=== PATIENT | female | born 1950 | race Caucasian/White ===

== ENCOUNTER 2016-06-14 13:32 | Observation (INO) | payer MEDICARE, MEDICAID ==
[2016-06-14] VITALS (10 sets, daily range): BP systolic 150–192; BP diastolic 71–90; PULSE 64–75; RESP 17–20; TEMP 97.6–98.3; O2SAT 96–99
[~2016-06-14] VITALS: Ht 157.5 cm; Wt 83.7 kg
[~2016-06-14 13:32] MED LIST: Aspirin Ec PO; COZA50TA PO; HYDR12.56 PO; LORT7.5T3 PO; MIRTA15 PO; ROSU40 PO
[2016-06-14] MEDS ORDERED: HYDROCORTISONE SOD SUCCINATE 250 MG VIAL IV ONE (13:45)
[2016-06-14] MEDS ORDERED: diphenhydrAMINE HCL 50 MG/ML VIAL IVP ONE (13:45)
--- NOTE | 2016-06-14 13:53 | RADRPT ---
EXAM DATE/TIME: 06/14/2016 13:44 [facility] COMPARISON: MRI BRAIN W & W/O CONTRAST, April 14, 2016, 8:55. CTA BRAIN W 3D RECON, April 12, 2016, 16:[address] BRAIN W/O CONTRAST, April 13, 2016, 21:23. INDICATIONS : Aphasia since noon today. Previous stroke. RADIATION DOSE: 42.52 CTDIvol (mGy) This report was called to Dr. Angulo at 1350 MEDICAL HISTORY : Hypertension. Carcinoma, bladder. Cerebrovascular disease. SURGICAL HISTORY : None. ENCOUNTER: Initial ACUITY: 1 day PAIN SCALE: Non-responsive LOCATION: cranial TECHNIQUE: Multiple contiguous axial images were obtained of the head. Using automated exposure control and adj ustment of the mA and/or kV according to patient size, radiation dose was kept as low as reasonably a chievable to obtain optimal diagnostic quality images. FINDINGS: CEREBRUM: The ventricles are normal for age. No evidence of midline shift, mass lesion, hemorrhage or acute in farction. No extra-axial fluid collections are seen. POSTERIOR FOSSA: The cerebellum and brainstem are intact. The 4th ventricle is midline. The cerebellopontine angle i s unremarkable. EXTRACRANIAL: The visualized portion of the orbits is intact. SKULL: The calvaria is intact. No evidence of skull fracture. CONCLUSION: Negative for acute process. Gama Hooks MD FACR on June 14, 2016 at 13:49 Board Certified Radiologist. This report was verified electronically.
[2016-06-14 13:55] LABS: AUTOMATED NEUTROPHIL # 8.6 TH/MM3 (1.8-7.7); BASOPHIL % 0.3 % (0.0-2.0); HEMATOCRIT 30.3 % (35.0-46.0); HEMO FLAGS DIFF FINAL; I-STAT POTASSIUM 4.6 MMOL/L (3.5-4.9); I-STAT SODIUM 143 MMOL/L (138-146); LYMPH % 3.9 % (9.0-44.0); LYMPHOCYTE # 0.3 TH/MM3 (1.0-4.8); MEAN CELL VOLUME 87.5 FL (80.0-100.0); MEAN CORPUSCULAR HGB CONC 34.3 % (32.0-36.0); MONO % 0.4 % (0.0-8.0); NEUT % 95.4 % (16.0-70.0); PLATELET COUNT 168 TH/MM3 (150-450); RED BLOOD COUNT 3.46 MIL/MM3 (4.00-5.30); RED CELL DISTRIBUTION WIDTH 17.1 % (11.6-17.2)
[2016-06-14 14:04] LABS: APTT (PATIENT) 32.7 SEC (24.3-30.1); INTERNATIONAL NORMALIZED RATIO 0.9 RATIO; PROTHROMBIN TIME - PATIENT 10.4 SEC (9.8-11.6)
[2016-06-14 14:14] LABS: CREATINE KINASE 55 U/L (26-192)
--- NOTE | 2016-06-14 14:15 | PD ---
HPI Chief Complaint: Neuro Symptoms/ Deficits Time Seen by Provider: 13:37 Travel History International Travel<30 days: No Contact w/Intl Traveler<30days: No Traveled to known affect area: No History of Present Illness HPI Patient is a 66-year-old female with history of endometrial cancer who presents to emergency room after she developed complete aphasia around 1pm today after her chemo infusion. Patient was at the oncology center today receiving chemotherapy, reports that she suddenly developed complete aphasia. Patient was brought to the emergency room, a stroke alert was called patient. Blood sugar was 301, and patient was brought to CT of her head. Of note, patient had similar symptoms occur on April 12, 2016, at that time, patient presented with similar complaints after she had her chemotherapy treatment. Patient was given TPA and patient had complete resolution of her symptoms 6 minutes after she was given TPA. Patient had a full workup including an MRI of her head at that time. 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 As per patient's daughter, patient did follow up with neurologist yesterday, reports that pt most likely had a TIA. PFSH Past Medical History Hx Anticoagulant Therapy: Yes (ASA) Cancer: Yes (BLADDER CANCER) Cardiovascular Problems: Yes (HBP) Chemotherapy: Yes Diabetes: No Genitourinary: Yes (BLADDER CA [place] ) Hepatitis: No Hiatal Hernia: No Neurologic: No Respiratory: No Thyroid Disease: No ?: Not Past Surgical History Abdominal Surgery: No Cardiac Surgery: No Ear Surgery: No Endocrine Surgery: No Eye Surgery: No Genitourinary Surgery: Yes (BLADDER CANCER 8 YRS AGO) Gynecologic Surgery: No Oral Surgery: No Thoracic Surgery: No Family History Family History: Negative Social History Alcohol Use: No Tobacco Use: No Substance Use: No Allergies-Medications (Allergen,Severity, Reaction): Coded Allergies: Naprosyn (Verified Allergy, Intermediate, ITCHING, 06/14/16) Reported Meds & Prescriptions Reported Meds & Active Scripts Active Reported Losartan (Losartan Potassium) 100 Mg Tab 100 Mg PO DAILY Percocet (Oxycodone-Acetaminophen) 7.5-325 mg Tab 1 Tab PO Q6H PRN Flonase Allergy Relief Nasal [place] (Fluticasone Nasal [place]) 50 Mcg/Act [place] 2 [place] EACH NARE DAILY PRN Flexeril (Cyclobenzaprine HCl) 10 Mg Tab 10 Mg PO TID PRN Zyrtec Allergy (Cetirizine HCl) 10 Mg Tab 10 Mg PO DAILY PRN Xanax (Alprazolam) 0.25 Mg Tab 0.25 Mg PO BID Viibryd (Vilazodone) 40 Mg Tab 40 Mg PO DAILY Crestor (Rosuvastatin Calcium) 40 Mg Tab 40 Mg PO HS Ecotrin (Aspirin) 325 Mg Tab 325 Mg PO DAILY Review of Systems ROS Limitations: Altered Mental Status Physical Exam Narrative GENERAL: Patient in distress, patient completely aphasic SKIN: Warm and dry. HEAD: Atraumatic. Normocephalic. EYES: Pupils 3 equal and round and reactive. No scleral icterus. No injection or drainage. ENT: No nasal bleeding or discharge. Mucous membranes pink and moist. NECK: Trachea midline. No JVD. CARDIOVASCULAR: Regular rate and rhythm. No murmur appreciated. RESPIRATORY: No accessory muscle use. Clear to auscultation. Breath sounds equal bilaterally. GASTROINTESTINAL: Abdomen soft, non-tender, nondistended. Hepatic and splenic margins not palpable. MUSCULOSKELETAL: No obvious deformities. No clubbing. No cyanosis. No edema. NEUROLOGICAL: Awake and alert. Patient is aphasic, patient moving all extremities and following commands. NIH Scale 5 Data Data Last Documented VS Vital Signs Date Time Temp Pulse Resp B/P Pulse Ox O2 Delivery O2 Flow Rate FiO2 06/14/16 14:03 75 18 155/73 99 Nasal Cannula 3 06/14/16 13:35 97.8 Orders Electrocardiogram (06/14/16 ) Prothrombin Time / Inr (Pt) (06/14/16 13:36) Act Partial Throm Time (Ptt) (06/14/16 13:36) Complete Blood Count With Diff (06/14/16 13:36) Creatine Kinase (Cpk) (06/14/16 13:36) Troponin I (06/14/16 13:36) Ua Includes Microscopic (06/14/16 13:36) Ct Brain W/O Iv Contrast(Rout) (06/14/16 ) Consult Neurology (06/14/16 ) Blood Glucose (06/14/16 13:36) Ecg Monitoring (06/14/16 13:36) Iv Access Insert/Monitor (06/14/16 13:36) NPO (06/14/16 13:36) Oximetry (06/14/16 13:36) Oxygen Administration (06/14/16 13:36) Hydrocortisone Inj (Solucortef Inj) (06/14/16 13:45) Diphenhydramine Inj (Benadryl Inj) (06/14/16 13:45) I-Stat Creatinine (06/14/16 13:45) I-Stat Profile (06/14/16 13:45) Mri Brain W/O Contrast (06/14/16 ) (Hub Use Only)Inp Phy Cons/Ref (06/14/16 ) Admit Order (Ed Use Only) (06/14/16 15:15) Labs Laboratory Tests Test 06/14/16 13:45 White Blood Count 9.0 TH/MM3 Red Blood Count 3.46 MIL/MM3 Hemoglobin 10.4 GM/DL Bedside Hemoglobin 9.5 G/DL Hematocrit 30.3 % Bedside Hematocrit 28.0 % Mean Corpuscular Volume 87.5 FL Mean Corpuscular Hemoglobin 30.0 PG Mean Corpuscular Hemoglobin 34.3 % Concent Red Cell Distribution Width 17.1 % Platelet Count 168 TH/MM3 Mean Platelet Volume 7.2 FL Neutrophils (%) (Auto) 95.4 % Lymphocytes (%) (Auto) 3.9 % Monocytes (%) (Auto) 0.4 % Eosinophils (%) (Auto) 0.0 % Basophils (%) (Auto) 0.3 % Neutrophils # (Auto) 8.6 TH/MM3 Lymphocytes # (Auto) 0.3 TH/MM3 Monocytes # (Auto) 0.0 TH/MM3 Eosinophils # (Auto) 0.0 TH/MM3 Basophils # (Auto) 0.0 TH/MM3 CBC Comment DIFF FINAL Differential Comment Prothrombin Time 10.4 SEC Prothromb Time International 0.9 RATIO Ratio Activated Partial 32.7 SEC Thromboplast Time Bedside Sodium 143 MMOL/L Bedside Potassium 4.6 MMOL/L Bedside Chloride 116 MMOL/L Bedside Blood Urea Nitrogen 32 MG/DL Bedside Creatinine 1.6 MG/DL Bedside Glucose 300 MG/DL Total Creatine Kinase 55 U/L Troponin I LESS THAN 0.02 NG/ML MDM Medical Screen Exam Complete: Yes Emergency Medical Condition: Yes Medical Record Reviewed: Yes Differential Diagnosis CVA versus TIA versus medication reaction Narrative Course Patient is a 66-year-old female who presents to emergency room for evaluation of possible stroke. He was getting chemotherapy for her endometrial cancer when she became aphasic all of a sudden. Onset of symptoms was around 1 PM today. Patient was brought to the emergency room, stroke alert was called overhead. I stat labs were ordered and obtained Creatinine 1.6 Sodium 143 Potassium 4.6 Chloride 116 BUN 32 Glucose 300 Hemoglobin 9.5 Hematocrit 28% Dr. Marshall with Neurology was called and notified of [facility] Oncology center did notify me that this may be a medication reaction from the chemotherapy. Recommends that I give a dose of Solu-Cortef as well as Benadryl to see if this is a medication reaction. Upon further evaluation of medical records, patient was seen for similar symptoms and was given tPA on April 12, 2016, patient had resolution of symptoms after infusions of infusion of TPA 6 minutes after medications were given. Patient is not a lytic candidate at this time given her recent stroke within the past [address] of the head was negative, case is reviewed with radiologist, recommends MRI of the brain at this time. Upon return to the ER for an MRI, patient now conversive and has complete resolution of her aphasia plan to obs for tia MRI reviewed Pt was seen by Dr Marshall and Dr Hunt who accepts pt to Service pt with Medication Reaction vs TIA Critical Care Narrative Aggregate critical care time was 60 minutes. Time to perform other separately billable procedures was not included in the critical care time. My time did not include minutes spent treating any other patients simultaneously or on activities that did not directly contribute to the patient's treatment. The services I provided to this patient were to treat and/or prevent clinically significant deterioration that could result in: , decompensation, deterioration I provided critical care services requiring my management, as noted below: Chart data review, documentation time, medication orders and management, vital sign assessments/reviewing monitor data, ordering and reviewing lab tests, ordering and interpreting/reviewing x-rays and diagnostic studies, care of the patient and discussion of the patient with the admitting physicians. Stroke Alert NIHSS NIH Stroke Scale Result: 5 NIHSS Time Completed: 14:35 Diagnosis Diagnosis: Primary Impression: TIA (transient ischemic attack) Qualified Code: G45.9 - Transient cerebral ischemia, unspecified type Additional Impression: Medication reaction Qualified Code: T88.7XXA - Medication reaction, initial encounter Admitting Physician Requests: Observation Kellie Angulo DO Jun 14, 2016 14:15
[2016-06-14] MEDS ORDERED: ROSU40 PO (14:26)
[2016-06-14] MEDS ORDERED: ALPR.25 PO (14:26)
[2016-06-14] MEDS ORDERED: ZYRT10TA PO (14:26)
[2016-06-14] MEDS ORDERED: ASPI-156 PO (14:26)
[2016-06-14] MEDS ORDERED: VIIB40TA PO (14:26)
[2016-06-14] MEDS ORDERED: CYCL1TAB29 PO (14:29)
[2016-06-14] MEDS ORDERED: LOSA100T PO (14:29)
[2016-06-14] MEDS ORDERED: PERC7.5T13 PO (14:29)
[2016-06-14] MEDS ORDERED: FLUT1SPR5 EACH NARE (14:29)
--- NOTE | 2016-06-14 14:55 | RADRPT ---
EXAM DATE/TIME: 06/14/2016 14:14 [facility] COMPARISON: No previous studies available for comparison. INDICATIONS : Aphasia. Right side weakness. MEDICAL HISTORY : Carcinoma, bladder. Hypertension. SURGICAL HISTORY : Hysterectomy. ENCOUNTER: Initial ACUITY: 1 day PAIN SCORE: 0/10 LOCATION: cranial TECHNIQUE: Multiplanar, multisequence MRI of the brain was performed without contrast. FINDINGS: CEREBRUM: The ventricles are normal for age. No evidence of midline shift, mass lesion, hemorrhage or acute in farction. No extraaxial fluid collections are seen. The pituitary gland and suprasellar cistern are normal in configuration. WHITE MATTER: Scattered foci of increased T2 signal identified within the periventricular white matter and within t he white matter involving the centrum semiovale and burrell radiata. These are not associated with res tricted diffusion. No evidence of hemorrhage. POSTERIOR FOSSA: The cerebellum and brainstem are intact. The 4th ventricle is midline. The cerebellopontine angle is unremarkable. The cerebellar tonsils are normal in position. DIFFUSION IMAGING: No focal areas of restricted diffusion are seen. No evidence of acute infarction. EXTRACRANIAL: The visualized portions of the orbits and paranasal sinuses are unremarkable. CONCLUSION: Nonspecific foci of increased T2 signal within the white matter as noted above. Given the patient's a ge this may reflect sequelae of chronic small vessel ischemic change.. Nury Verdugo MD on June 14, 2016 at 14:52 Board Certified Radiologist. This report was verified electronically.
[2016-06-14] MEDS ORDERED: FLUTICASONE PROPIONATE 50 MCG/ACT 16 GM NASAL SPRAY EACH NARE PRN (15:30)
[2016-06-14] MEDS ORDERED: CETIRIZINE HCL 10 MG TAB PO PRN (15:30)
[2016-06-14] MEDS ORDERED: CYCLOBENZAPRINE HCL 10 MG TAB PO PRN (15:30)
--- NOTE | 2016-06-14 15:32 | HHI.HP ---
[facility] George Joseph M.D. Admission Diagnosis TIA vs Medication Reaction Diagnoses: (1) Medication reaction Diagnosis: Principal Chief Complaint: stroke alert Travel History International Travel<30 Days: No Contact w/Intl Traveler <30 Da: No Traveled to Known Affected Are: No History of Present Illness patient is a 66 y/o female with history of cervical cancer and hypertension who was brought to ER with aphasia. she was receiving her chemo earlier today when she started to have aphasia. she doesn't remember if she had any focal weakness. she received a dose of benadryl and hydrocortisone after which the symptom resolved. her daughter says at the time she was responding but was not able to talk. at the time of my evaluation she was resting comfortably with no distress. she was awake, alert and fully oriented.of note she had the same reaction to her chemo two months ago.she had a full neurological work-up and was discharged with aspirin. Review of Systems Constitutional: DENIES: Fever, Weight loss, Chills, Night Sweats Eyes: DENIES: Blurred vision, Diplopia, Vision loss, Double Vision Ears, nose, mouth, throat: DENIES: Tinnitus, Vertigo, Throat pain, Epistaxis Respiratory: DENIES: Apneas, Cough, Snoring, Wheezing, Hemoptysis, Sputum production, Shortness of breath Cardiovascular: DENIES: Chest pain, Palpitations, Syncope, Dyspnea on Exertion , PND, Lower Extremity Edema, Orthopnea, Claudication Gastrointestinal: DENIES: Abdominal pain, Black stools, Bloody stools, Constipation, Diarrhea, Nausea, Vomiting, Difficulty Swallowing, Anorexia Genitourinary: DENIES: Urinary frequency, Urgency, Hematuria, Dysuria Musculoskeletal: DENIES: Joint pain, Muscle aches, Stiffness, Joint Swelling Integumentary: DENIES: Rash Neurologic: COMPLAINS OF: Speech Problems, DENIES: Abnormal gait, Headache, Localized weakness, Paresthesias, Seizures, Tremor, Poor Balance Psychiatric: DENIES: Anxiety, Confusion, Mood changes, Depression, Hallucinations, Agitation, Suicidal Ideation, Homicidal Ideation, Delusions Past Family Social History Past Medical History endometrial cancer hypertension Past Surgical History hysterectomy nephrostomy tube placement Reported Medications Losartan (Losartan Potassium) 100 Mg Tab 100 Mg PO DAILY Percocet (Oxycodone-Acetaminophen) 7.5-325 mg Tab 1 Tab PO Q6H PRN Flonase Allergy Relief Nasal [place] (Fluticasone Nasal [place]) 50 Mcg/Act [place] 2 [place] EACH NARE DAILY PRN Flexeril (Cyclobenzaprine HCl) 10 Mg Tab 10 Mg PO TID PRN Zyrtec Allergy (Cetirizine HCl) 10 Mg Tab 10 Mg PO DAILY PRN Xanax (Alprazolam) 0.25 Mg Tab 0.25 Mg PO BID Viibryd (Vilazodone) 40 Mg Tab 40 Mg PO DAILY Crestor (Rosuvastatin Calcium) 40 Mg Tab 40 Mg PO HS Ecotrin (Aspirin) 325 Mg Tab 325 Mg PO DAILY Allergies: Coded Allergies: Naprosyn (Verified Allergy, Intermediate, ITCHING, 06/14/16) Active Ordered Medications Current Medications Hydrocortisone Sodium Succinate (SoluCORTEF INJ) 250 mg ONCE ONCE IV Last administered on 06/14/16 14:45; Start 06/14/16 at 13:45; Stop 06/14/16 at 13:47 ; Status DC Diphenhydramine HCl (Benadryl Inj) 25 mg ONCE ONCE IVP Last administered on 14:01; Start 06/14/16 at 13:45; Stop 06/14/16 at 13:47; Status DC Family History cancer. Social History quit smoking years ago- doesn't drink. Physical Exam Vital Signs Vital Signs Date Time Temp Pulse Resp B/P Pulse Ox O2 Delivery O2 Flow Rate FiO2 06/14/16 15:00 64 17 163/71 99 Nasal Cannula 2 06/14/16 14:03 75 18 155/73 99 Nasal Cannula 3 06/14/16 13:52 18 98 Nasal Cannula 3 06/14/16 13:52 Nasal Cannula 2 06/14/16 13:35 97.8 70 18 186/80 98 Physical Exam GENERAL: This is a well-nourished, well-developed patient, in no apparent distress. SKIN: No rashes, ecchymoses or lesions. Cool and dry. HEAD: Atraumatic. Normocephalic. No temporal or scalp tenderness. EYES: Pupils equal round and reactive. Extraocular motions intact. No scleral icterus. No injection or drainage. ENT: Nose without bleeding, purulent drainage or septal hematoma. Throat without erythema, tonsillar hypertrophy or exudate. Uvula midline. Airway patent. NECK: Trachea midline. No JVD or lymphadenopathy. Supple, nontender, no meningeal signs. CARDIOVASCULAR: Regular rate and rhythm without murmurs, gallops, or rubs. RESPIRATORY: Clear to auscultation. Breath sounds equal bilaterally. No wheezes , rales, or rhonchi. GASTROINTESTINAL: Abdomen soft, non-tender, nondistended. No hepato-splenomegaly , or palpable masses. No guarding. MUSCULOSKELETAL: Extremities without clubbing, cyanosis, or edema. No joint tenderness, effusion, or edema noted. No calf tenderness. Negative Homans sign bilaterally. NEUROLOGICAL: Awake and alert. Cranial nerves II through XII intact. Motor and sensory grossly within normal limits. Five out of 5 muscle strength in all muscle groups. Normal speech. Laboratory Laboratory Tests Test 06/14/16 13:45 White Blood Count 9.0 Red Blood Count 3.46 Hemoglobin 10.4 Bedside Hemoglobin 9.5 Hematocrit 30.3 Bedside Hematocrit 28.0 Mean Corpuscular Volume 87.5 Mean Corpuscular Hemoglobin 30.0 Mean Corpuscular Hemoglobin 34.3 Concent Red Cell Distribution Width 17.1 Platelet Count 168 Mean Platelet Volume 7.2 Neutrophils (%) (Auto) 95.4 Lymphocytes (%) (Auto) 3.9 Monocytes (%) (Auto) 0.4 Eosinophils (%) (Auto) 0.0 Basophils (%) (Auto) 0.3 Neutrophils # (Auto) 8.6 Lymphocytes # (Auto) 0.3 Monocytes # (Auto) 0.0 Eosinophils # (Auto) 0.0 Basophils # (Auto) 0.0 CBC Comment DIFF FINAL Differential Comment Prothrombin Time 10.4 Prothromb Time International 0.9 Ratio Activated Partial 32.7 Thromboplast Time Bedside Sodium 143 Bedside Potassium 4.6 Bedside Chloride 116 Bedside Blood Urea Nitrogen 32 Bedside Creatinine 1.6 Bedside Glucose 300 Total Creatine Kinase 55 Troponin I LESS THAN 0.02 Result Diagram: 06/14/16 1345 Imaging Last Impressions Head CT 06/14/16 0000 Signed Impressions: Service Date/Time: Tuesday, June 14, 2016 13:44 - CONCLUSION: Negative for acute process. Gama Hooks MD FACR Brain MRI 06/14/16 0000 Signed Impressions: Service Date/Time: Tuesday, June 14, 2016 14:14 - CONCLUSION: Nonspecific foci of increased T2 signal within the white matter as noted above. Given the patient's age this may reflect sequelae of chronic small vessel ischemic change.. Nury Verdugo MD Assessment and Plan Assessment and Plan A/P - aphasia- likely reaction to her chemo CT and MRI head with no acute abnormality. of note had the same reaction to her chemo two months ago and had neurological work-up including CTA of the neck will continue with neuro-checks- consulted neurology -endometrial cancer- f/u with [facility] ( daughter is going to make an appointment with ). -hypertension; resume home meds -DVT prophylaxis with lovenox Discussed Condition With ER physician. the patient and her family. . Problem Qualifiers (1) Medication reaction: Qualified Code: T88.7XXA - Medication reaction, initial encounter Mila Jerome MD Jun 14, 2016 15:32
--- NOTE | 2016-06-14 16:08 | MB ---
cc: YARA MCCLAIN M.D. DATE OF CONSULTATION: 06/14/2015 REASON FOR CONSULTATION: DATE OF : 1950 66 years old. REASON FOR CONSULTATION Stroke alert, possible. HISTORY OF PRESENT ILLNESS: This is a 66-year-old woman with a history of endometrial cancer, comes to the emergency room at that she developed speech arrest a aphasia about 1 o'clock after chemo infusion. The chemo infusion was only of Taxol and she had about an hour plus left on that. She came to the emergency room had an Accu-Chek of 301, she went to CT. Was given some Benadryl and steroids by time she came back she was back to baseline. We did a MRI of the brain that did not show anything acute. No acute stroke. Similarly she had an event like this back in April where she received TPA workup has been unremarkable at that time except for possible small area of enhancement consistent with what looks like a capillary tellangectasia. She denies any headaches, chest pain, shortness of breath, weakness, numbness, tingling. She is able to speak. She has a history of cancer of the endometrium, high blood pressure, possible bladder cancer eight years ago. SOCIAL HISTORY No tobacco, alcohol or drugs. FAMILY HISTORY Negative. ALLERGIES NAPROSYN. HOME MEDICATIONS: Losartan Percocet Flonase Flexeril Zyrtec Xanax vibrate Crestor She takes baby aspirin. PHYSICAL EXAMINATION: VITAL SIGNS: On exam vitals are temperature is 97.8, pulse 64, respiratory rate 17, blood pressure 163/71 satting at 99% 2 liters nasal cannula. NECK: Neck is supple. No bruits. HEART: Regular. No murmurs. No A fib. NEUROLOGIC: She is awake, alert. She is oriented and fluent. pupils reactive. Visual duran full. Face symmetrical. Tongue midline. Normal facial sensation Motor: No drift. No leg lag. Toes are downgoing. [id number], [id number] is normal. Sensory is normal. Gait is withheld. LABORATORY FINDINGS: The labs were reviewed. Hemoglobin is 10.4. Coag panel is unremarkable except PTT is 32.7 and glucose was 300, creatinine 1.6, CK 55. Her last CA-125 is 93.5 MRI of the brain shows nonspecific G2 white matter changes but no acute findings. IMPRESSION Questionable TIA versus medicine effect due to Taxol and in this case she had an extensive workup at last hospitalization she is not a candidate for TPA her NIH a zero. I recommend at this point just changing her to flex to Plavix 75 mg daily. A 3-week-old to monitor should be initiated consideration would be to take off Taxol and to changes and other drugs per Dr. West, in case this is a drug reaction. An Holter monitor on the sure that she is not going in and out of A fib that can contribute to this type of symptomatology if she is stable from my perspective tomorrow she can be discharged home with the recommendations given. MD GIANLUCA Bower/kerry /3:35 PM /4:02 PM
[2016-06-14] MEDS: CLOPIDOGREL 75 MG TAB PO SCH (16:11)
[2016-06-14 17:08] LABS: BLOOD, URINE SMALL (NEG); GLUCOSE,URINE 300 mg/dL (NEG); HYALINE CAST, URINE 3 /lpf (RARE); KETONE, URINE NEG (NEG); MUCUS URINE FEW /lpf (OCC); NITRITE,URINE NEG (NEG); URINE COLOR LIGHT-YELLOW (YELLW/STRAW)
[2016-06-14] MEDS: oxyCODONE/ACETAMINOPHEN 7.5 MG/325 MG TAB PO PRN (18:12)
[2016-06-14] MEDS: ALPRAZolam 0.25 MG TAB PO SCH (20:24)
[2016-06-14] MEDS ORDERED: ATORVASTATIN 80 MG TAB PO SCH (21:00)
[2016-06-15 04:05] VITALS: BP 152/86; PULSE 64; RESP 20; TEMP 98.3; O2SAT 99
[2016-06-15 07:00] VITALS: PULSE 72
--- NOTE | 2016-06-15 07:42 | HHI.PR ---
Subjective Remarks resting comfortably with no distress. denies chest pain, sob or dizziness. wants to go home today. Objective Vitals Vital Signs Date Time Temp Pulse Resp B/P Pulse Ox O2 Delivery O2 Flow Rate FiO2 06/15/16 04:05 98.3 64 20 152/86 99 06/14/16 23:29 97.6 67 20 152/78 97 06/14/16 19:57 72 06/14/16 19:45 98.3 68 20 156/76 98 06/14/16 19:20 16 06/14/16 18:00 68 06/14/16 17:30 150/90 06/14/16 16:53 98.0 73 20 191/84 96 06/14/16 15:00 64 17 163/71 99 Nasal Cannula 2 06/14/16 14:03 75 18 155/73 99 Nasal Cannula 3 06/14/16 13:52 18 98 Nasal Cannula 3 06/14/16 13:52 Nasal Cannula 2 06/14/16 13:35 97.8 70 18 186/80 98 I/O 06/14/16 06/14/16 06/14/16 06/15/16 06/15/16 06/15/16 07:00 15:00 23:00 07:00 15:00 23:00 Intake Total 240 ml 360 ml Balance 240 ml 360 ml Intake Oral 240 ml 360 ml # Voids 2 Result Diagram: 06/14/16 1345 Imaging Last Impressions Head CT 06/14/16 0000 Signed Impressions: Service Date/Time: Tuesday, June 14, 2016 13:44 - CONCLUSION: Negative for acute process. Gama Hooks MD FACR Brain MRI 06/14/16 0000 Signed Impressions: Service Date/Time: Tuesday, June 14, 2016 14:14 - CONCLUSION: Nonspecific foci of increased T2 signal within the white matter as noted above. Given the patient's age this may reflect sequelae of chronic small vessel ischemic change.. Nury Verdugo MD Objective Remarks GENERAL: This is a well-nourished, well-developed patient, in no apparent distress. CARDIOVASCULAR: Regular rate and regular rhythm without murmurs, gallops, or rubs. RESPIRATORY: Clear to auscultation. Breath sounds equal bilaterally. No wheezes , rales, or rhonchi. GASTROINTESTINAL: Abdomen soft, non-tender, nondistended. Normal, active bowel sounds MUSCULOSKELETAL: Extremities without clubbing, cyanosis, or edema. NEURO: Alert & Oriented x4 to person, place, time, situation. Moves all ext x4 Procedures none Medications and IVs Current Medications Hydrocortisone Sodium Succinate (SoluCORTEF INJ) 250 mg ONCE ONCE IV Last administered on 06/14/16 14:45; Start 06/14/16 at 13:45; Stop 06/14/16 at 13:47 ; Status DC Diphenhydramine HCl (Benadryl Inj) 25 mg ONCE ONCE IVP Last administered on 14:01; Start 06/14/16 at 13:45; Stop 06/14/16 at 13:47; Status DC Alprazolam (Xanax) 0.25 mg BID PO Last administered on 06/14/16 20:24; Start 06/14/16 at 21:00 Cetirizine HCl (ZyrTEC) 10 mg DAILY PRN PO ALLERGIES; Start 06/14/16 at 15:30 Cyclobenzaprine HCl (Flexeril) 10 mg TID PRN PO MUSCLE SPASM; Start 06/14/16 at 15:30 Fluticasone Propionate (Flonase [place]cardo Spr) 2 spray DAILY PRN EACH NARE ALLERGIES ; Start 06/14/16 at 15:30 Losartan Potassium (Cozaar) 100 mg DAILY PO ; Start 06/15/16 at 09:00 Atorvastatin Calcium (Lipitor) 80 mg HS PO Last administered on 06/14/16 20:24 ; Start 06/14/16 at 21:00 Patient Own Medication PT OWN MED: VIIB... DAILY PO ; Start 06/15/16 at 09:00; Status Future Hold Enoxaparin Sodium (Lovenox Inj) 40 mg Q24H SQ ; Start 06/15/16 at 09:00 Clopidogrel Bisulfate (Plavix) 75 mg DAILY PO Last administered on 06/14/16 16 :11; Start 06/14/16 at 17:00 Oxycodone/ Acetaminophen (Percocet 7.5-325 Mg) 1 tab Q6H PRN PO PAIN 1-10 Last administered on 06/14/16 18:12; Start 06/14/16 at 18:00 A/P Assessment and Plan A/P - aphasia- likely reaction to her chemo CT and MRI head with no acute abnormality. of note had the same reaction to her chemo two months ago and had neurological work-up including CTA of the neck neurology consulted and previously spoke with ; patient was cleared for discharge with outpatient f/u. started on plavix. will put the holter and this will be followed up as outpatient. -endometrial cancer- f/u with [facility] as outpatient ( daughter is going to make an appointment with ). -hyperglycemia- steroid-induced ( while receiving her chemo)- the daughter says that she's being followed up closely by her PCP. -chronic renal insufficiency- at her baseline accu-check this morning 127. -hypertension; resumed home meds -DVT prophylaxis with lovenox Discharge Planning dc home today. f/u; pcp, neurology and [facility]. d/w the patient, her daughter and RN. see med list. Mila Jerome MD Jun 15, 2016 07:42
[2016-06-15] MEDS ORDERED: PLAV75TA29 PO (07:43)
--- NOTE | 2016-06-15 07:43 | HHI.DCPOC ---
Discharge Care Plan Diagnosis: (1) Medication reaction Your Health Problems Are: Difficulty with Speech Goals to Promote Your Health * To prevent worsening of your condition and complications * To maintain your health at the optimal level Directions to Meet Your Goals Take your medications as prescribed Follow your dietary instruction Follow activity as directed Keep your appointments as scheduled Take your immunizations and boosters as scheduled If your symptoms worsen call your PCP, if no PCP go to Urgent Care Center or Emergency Room Smoking is Dangerous to Your Health. Avoid second hand smoke Call the 24-hour hour crisis hotline for domestic abuse at Mila Jerome MD Jun 15, 2016 07:43
--- NOTE | 2016-06-15 07:44 | HHI.DS ---
Discharge Summary Admission Date Jun 14, 2016 at 15:16 Discharge Date: Jun 15, 2016 Admitting Diagnosis TIA vs Medication Reaction (1) Medication reaction ICD Code: T88.7XXA Diagnosis: Principal Procedures none Brief History - From Admission patient is a 66 y/o female with history of cervical cancer and hypertension who was brought to ER with aphasia. she was receiving her chemo earlier today when she started to have aphasia. she doesn't remember if she had any focal weakness. she received a dose of benadryl and hydrocortisone after which the symptom resolved. her daughter says at the time she was responding but was not able to talk. at the time of my evaluation she was resting comfortably with no distress. she was awake, alert and fully oriented.of note she had the same reaction to her chemo two months ago.she had a full neurological work-up and was discharged with aspirin. CBC/BMP: 06/14/16 1345 Significant Findings Laboratory Tests Test 06/14/16 06/14/16 13:45 16:45 Red Blood Count 3.46 MIL/MM3 (4.00-5.30) Hemoglobin 10.4 GM/DL (11.6-15.3) Bedside Hemoglobin 9.5 G/DL (12.0-17.0) Hematocrit 30.3 % (35.0-46.0) Bedside Hematocrit 28.0 % (38.0-51.0) Neutrophils (%) (Auto) 95.4 % (16.0-70.0) Lymphocytes (%) (Auto) 3.9 % (9.0-44.0) Neutrophils # (Auto) 8.6 TH/MM3 (1.8-7.7) Lymphocytes # (Auto) 0.3 TH/MM3 (1.0-4.8) Activated Partial 32.7 SEC Thromboplast Time (24.3-30.1) Bedside Chloride 116 MMOL/L (98-109) Bedside Blood Urea Nitrogen 32 MG/DL (8-26) Bedside Creatinine 1.6 MG/DL (0.6-1.0) Bedside Glucose 300 MG/DL (60-95) Troponin I LESS THAN 0.02 NG/ML (0.02-0.05) Urine Protein 100 mg/dL (NEG-TRACE) Urine Glucose (UA) 300 mg/dL (NEG) Urine Occult Blood SMALL (NEG) Urine Mucus FEW /lpf (OCC) Imaging Last Impressions Head CT 06/14/16 0000 Signed Impressions: Service Date/Time: Tuesday, June 14, 2016 13:44 - CONCLUSION: Negative for acute process. Gama Hooks MD FACR Brain MRI 06/14/16 0000 Signed Impressions: Service Date/Time: Tuesday, June 14, 2016 14:14 - CONCLUSION: Nonspecific foci of increased T2 signal within the white matter as noted above. Given the patient's age this may reflect sequelae of chronic small vessel ischemic change.. Nury Verdugo MD PE at Discharge GENERAL: This is a well-nourished, well-developed patient, in no apparent distress. CARDIOVASCULAR: Regular rate and regular rhythm without murmurs, gallops, or rubs. RESPIRATORY: Clear to auscultation. Breath sounds equal bilaterally. No wheezes , rales, or rhonchi. GASTROINTESTINAL: Abdomen soft, non-tender, nondistended. Normal, active bowel sounds MUSCULOSKELETAL: Extremities without clubbing, cyanosis, or edema. NEURO: Alert & Oriented x4 to person, place, time, situation. Moves all ext x4 Hospital Course - aphasia- likely reaction to her chemo CT and MRI head with no acute abnormality. of note had the same reaction to her chemo two months ago and had neurological work-up including CTA of the neck neurology consulted and previously spoke with ; patient was cleared for discharge with outpatient f/u. started on plavix. will put the holter and this will be followed up as outpatient. -endometrial cancer- f/u with [facility] as outpatient ( daughter is going to make an appointment with ). -hyperglycemia- steroid-induced ( while receiving her chemo)- the daughter says that she's being followed up closely by her PCP. -chronic renal insufficiency- at her baseline accu-check this morning 127. -hypertension; resumed home meds -DVT prophylaxis with lovenox Pt Condition on Discharge: Good Discharge Disposition: Discharge Home Discharge Time: <= 30 minutes Discharge Instructions DIET: Follow Instructions for: Heart Healthy Diet Activities you can perform: Regular-No Restrictions Follow up Referrals: Neurology Oncology PCP Follow-up New Medications: Clopidogrel (Plavix) 75 Mg Tab 75 MG PO DAILY tia Days 30 Ref 0 TAB Continued Medications: Alprazolam (Xanax) 0.25 Mg Tab 0.25 MG PO BID Anxiety Ref 0 TAB Cetirizine (Zyrtec Allergy) 10 Mg Tab 10 MG PO DAILY PRN ALLERGIES Ref 0 TAB Cyclobenzaprine (Flexeril) 10 Mg Tab 10 MG PO TID PRN MUSCLE SPASM #90 Ref 0 TAB Fluticasone Nasal [place] (Flonase Allergy Relief Nasal [place]) 50 Mcg/Act [place] 2 SPRAY EACH NARE DAILY PRN ALLERGIES #1 Ref 0 BOTTLE Losartan (Losartan) 100 Mg Tab 100 MG PO DAILY Blood Pressure Management #30 Ref 0 TAB Oxycodone-Acetaminophen (Percocet) 7.5-325 mg Tab 1 TAB PO Q6H PRN PAIN Ref 0 TAB Rosuvastatin (Crestor) 40 Mg Tab 40 MG PO HS Cholesterol Management #30 Ref 0 TAB Vilazodone (Viibryd) 40 Mg Tab 40 MG PO DAILY Control Depression #30 Ref 0 TAB Discontinued Medications: Aspirin (Ecotrin) 325 Mg Tab 325 MG PO DAILY Mila Jerome MD Jun 15, 2016 07:44
[2016-06-15 07:45] VITALS: BP 168/86; PULSE 72; RESP 18; TEMP 98.1; O2SAT 99
[2016-06-15] MEDS: ALPRAZolam 0.25 MG TAB PO SCH (08:10)
[2016-06-15] MEDS: CLOPIDOGREL 75 MG TAB PO SCH (08:11)
[2016-06-15] MEDS: oxyCODONE/ACETAMINOPHEN 7.5 MG/325 MG TAB PO PRN (08:11)
[2016-06-15] MEDS ORDERED: ENOXAPARIN SODIUM 40 MG/0.4 ML SYRINGE SQ SCH (09:00)
[2016-06-15] MEDS ORDERED: PT OWN MED: VIIBRYD 40MG PO DAILY PO SCH (09:00)
[2016-06-15] MEDS ORDERED: LOSARTAN 50 MG TAB PO SCH (09:00)
--- NOTE | 2016-06-15 14:19 | EKG ---
Date Performed: 06/14/2016 Time Performed: 13:54:58 PTAGE: 66 years EKG: Sinus rhythm WITH OCCASIONAL SUPRAVENTRICULAR PREMATURE COMPLEXES BORDERLINE ECG Compared to prior tracing no sig nificant change PREVIOUS TRACING : 04/12/2016 15.06 DOCTOR: Gabino Acuña Interpretating Date/Time 06/15/2016 14:13:26
--- NOTE | 2016-06-25 00:09 | HM ---
Date Performed: 06/15/2016 Time Performed: 09:13:00 HOOKUP DATE: 06/15/16 09:13:00 AM Sat ANALYSIS START TIME: 06/15/2016 9:18:00 AM ANALYSIS END TIME: 06/16/2016 9:21:59 AM PATIENT AGE: 66 PATIENT HEIGHT: 62 PATIENT WEIGHT: 184 DRUG LIST PATIENT DIAGNOSIS: TIA TEST NARRATIVE: The patient's average heart rate was 66 BPM. Heart rates greater than 120 B PM were noted < 1% of the time. No episodes of bradycardia were noted. No pauses exceeding 2.0 s econds were noted. No ventricular ectopics were noted. 8 supraventricular ectopics, which rep resented < 1% of the total beat count, were noted. The highest supraventricular ectopic frequency oc curred from 12:00 PM to 01:00 PM Sat. During this time 4 SVE(s) occurred. No episodes of ST depr ession (defined as -1.0 mm or more) were noted in channel 1. No episodes of ST depression (defined a s -1.0 mm or more) were noted in channel 2. No episodes of ST depression (defined as -1.0 mm or more ) were noted in channel 3. No diary events were reported by the patient. TEST INTERPRETATION: 1) Baseline normal Sinus rhythm 2) Rare PAC, short run of PAT fo 4 beats 3) No episodes of ST depressions were noted 4) No diary ret urned 5) Essentially Normal Holter Monitor Signed by : Amando Churchill
== END 2016-06-15 10:30 | disposition home or self-care (01) ==
LOC: NEPA 13:32 → NEDA 15:16 → NEPGCP 16:37
PROVIDERS: ADMIT Internal Medicine; ATTEND Internal Medicine
DX: G45.9 Transient cerebral ischemic attack, unspecified (principal); T88.7XXA Unspecified adverse effect of drug or medicament, initial encounter; Z92.21 Personal history of antineoplastic chemotherapy; Z79.01 Long term (current) use of anticoagulants; Z85.51 Personal history of malignant neoplasm of bladder; Z79.899 Other long term (current) drug therapy; C54.1 Malignant neoplasm of endometrium; I12.9 Hypertensive chronic kidney disease with stage 1 through stage 4 chronic kidney disease, or unspecified chronic kidney disease; R94.31 Abnormal electrocardiogram [ECG] [EKG]
CPT/HCPCS: 70450; 70551; 81001; 82435; 82550; 82565; 82947; 82948; 84132; 84295; 84484; 84520; 85025; 85610; 85730; 93005; 96374; 96375; 99291; G0378; J1200; J1642; J1720; 93225; 93226